=== PATIENT | male | born 1985 | race Caucasian/White ===

== ENCOUNTER 2024-10-23 02:45 | Emergency (ER) | payer OTHER, SELFPAY ==
--- NOTE | ~2024-10-23 | CT_ITS ---
EXAMINATION: CT ABDOMEN AND PELVIS WITHOUT CONTRAST CLINICAL INFORMATION: Hematuria. COMPARISON: None available. TECHNIQUE: Multidetector volumetric imaging was performed from the superior aspect of the liver through the pubic symphysis. Sagittal and coronal reformatted images were obtained on the technologist's workstation. This CT examination was performed using dose optimization techniques as appropriate, variously including the following: *Automated exposure control *Adjustment of mA and/or kV according to patient size (this includes techniques or standardized protocols for targeted exams where dose is matched to indication/reason for exam; i.e. extremities or head) *Use of iterative reconstruction technique DLP: 623 mGy centimeter. FINDINGS: Inadequate evaluation of the intra-abdominal organs and vascular structures due to lack of IV contrast. LUNG BASES: No acute airspace disease or gross pulmonary nodules. LIVER, GALLBLADDER, AND BILIARY TREE: Liver measures 15 cm. Contracted gallbladder. No pericholecystic fluid collection or gallbladder wall thickening. No intrahepatic or extrahepatic biliary ductal dilatation. PANCREAS: No peripancreatic fluid collection. No main pancreatic ductal dilatation. SPLEEN: 8 cm. ADRENAL GLANDS: No nodular lesions. KIDNEYS AND URETERS: Right kidney: Dilatation of the pelvicalyceal system and the right ureter with associated periureteral edema pattern. There is a 1.5 mm calculus in the distal right ureter near the vesicoureteral junction. Left kidney: No hydronephrosis. No nephrolithiasis. No dilatation of the left ureter. BLADDER: Questionable 1 mm hyperdensity floating in the lumen. GASTROINTESTINAL TRACT: Appendix is normal. No intestinal obstruction pattern. No pneumatosis intestinalis. Nonspecific gas and fluid-filled mildly prominent mid small bowel loops with questionable fecaloid material. No gross intestinal wall thickening. ABDOMINAL WALL: Small fat-containing umbilical hernia. LYMPH NODES: Nonspecific mildly prominent retroperitoneum and mesenteric. VASCULAR: No aneurysm, abdominal aorta. No gross calcified plaques. PELVIC VISCERA: Inadequate evaluation. The prostate gland is not enlarged. OSSEOUS STRUCTURES: Decreased intervertebral disc height at L5-S1. Spina bifida occulta S1, congenital. CT/CT abdomen pelvis wo IV con IMPRESSION: 1.5 mm obstructing calculus distal right ureter near the vesicoureteral junction resulting in mild to moderate right hydroureteronephrosis. Fleischner guidelines were followed. Electronically signed by: Anton Boone MD 10/23/2024 08:02 AM EDT
[2024-10-23 02:49] VITALS: BP 151/97; PULSE 71; RESP 18; TEMP 36.4; O2SAT 100; BMI 36.4
[2024-10-23] MEDS: Ondansetron ODT 4 MG TAB.RAPDIS TRANSLINGU (02:54)
[2024-10-23 04:11] LABS: Basophils Absolute Auto 0.1 X10*3/uL (0.0-0.2); Basophils Percent Auto 0.3 % (0-2); Eosinophils Absolute Auto 0.1 X10*3/uL (0.0-0.4); Eosinophils Percent Auto 0.7 % (0-4); Hematocrit 45.9 % (42.0-52.0); Hemoglobin 16.2 g/dl (14.0-18.0); Imm Gran Abs Auto 0.05 X10*3/uL (0.00-0.03); Imm Gran Pct Auto 0.3 % (0.0-0.4); Lymphocytes Absolute Auto 1.3 X10*3/uL (1.2-4.9); Lymphocytes Percent Auto 8.8 % (20-40); MANUAL DIFF FLAG NO; Mean Corpuscular HGB Conc 35.3 g/dl (31.0-36.0); Mean Corpuscular Hemoglobin 29.3 pg (27.0-33.0); Mean Corpuscular Volume 83.2 fL (80.0-98.0); Mean Platelet Volume 10.7 fL (9.4-12.4); Monocytes Absolute Auto 0.8 X10*3/uL (0.1-1.2); Monocytes Percent Auto 5.6 % (2-11); Neutrophils Absolute Auto 12.7 x10*3/uL (2.0-8.3); Neutrophils Percent Auto 84.3 % (45-73); Platelet Count 254 X10*3/uL (160-400); Red Blood Count 5.52 X10*6/uL (4.60-5.80); Red Cell Distribution Width 11.7 % (11.0-16.0); White Blood Count 15.1 X10*3/uL (4.8-10.8)
[2024-10-23 04:27] LABS: Alanine Aminotransferase 47 U/L (0-40); Albumin Level 4.9 g/dL (3.5-5.0); Alkaline Phosphatase 49 U/L (39-117); Anion Gap 14 (12-20); Aspartate Amino Transferase 32 U/L (5-37); Bilirubin Direct 0.2 mg/dL (0.0-0.5); Bilirubin Total 0.6 mg/dL (0.0-1.0); Blood Urea Nitrogen 15 mg/dL (9-16); Calcium 9.4 mg/dL (8.4-10.2); Carbon Dioxide 26 mmol/L (22-29); Chloride 103 mmol/L (96-108); Creatinine Clr Calc Pharmacy 110.2; Estimated Glomerular Filt Rate > 60; Glucose Random 118 mg/dL (60-115); Potassium 3.4 mmol/L (3.3-5.1); Sodium 140 mmol/L (135-145); Total Protein 7.6 g/dL (6.5-8.0)
[2024-10-23 06:13] LABS: Appearance Urine Clear; Color Urine Yellow; Glucose Urine UA Negative (Negative); Leukocyte Esterase Urine Negative (Negative); Nitrite Urine Negative (Negative); PH 7.5 (5.0-9.0); UMIC TRIGGER UACC YES; Urine Blood Moderate (2+) (Negative); Urine Ketones 40 mg/dL (Negative); Urine Protein Negative (Neg-Trace)
[2024-10-23 06:15] VITALS: BP 146/66; PULSE 71; RESP 20; TEMP 36.4; O2SAT 97
[2024-10-23 06:18] LABS: Bacteria Urine None Seen (None Seen); Hyaline Casts Urine 0-2 /LPF (0-2); RBC Urine >20 /HPF (0-2); Squamous Epithelial Cell Urine 0-2 /HPF (0-2); WBC Urine 0-5 /HPF (0-5)
--- NOTE | 2024-10-23 06:22 | ED.MALEGU ---
HPI - Male Genitourinary General Chief complaint: Urogenital-Male Stated complaint: right sided pain Time Seen by Provider: 10/23/24 06:22 History of Present Illness ED Provider: Roosevelt ARGUETA Narrative: The patient is a 38-year-old male who says that at around 01:00 this morning he woke up with right flank pain radiating was testicle. This started about an hour prior to arrival. He had had nausea during the day yesterday prior to the onset of the pain. Related Data Previous Rx's ?Medication ?Instructions ?Recorded ibuprofen 400 mg tablet 400 mg PO Q6H PRN pain #14 tabs 10/23/24 ondansetron 4 mg disintegrating 4 mg PO Q6H PRN nausea and 10/23/24 tablet vomiting #10 tabs oxycodone 5 mg tablet 5 mg PO Q6H PRN pain #10 tabs 10/23/24 Allergies Allergy/AdvReac Type Severity Reaction Status Date / Time No Known Allergies Allergy Verified 10/23/24 02:52 [No Known Allergies*] Review of Systems Review of Systems: Yes all other systems are reviewed and are negative [facility] Social History Social History Smoked in Last 30 Days: No Use of substances other than those prescribed or required for medical reasons: No Advance Directives: No Advance Directives Information Provided: Yes Do you have a plan to hurt others: No Plan Physical Exam Vital Signs: Vital Signs: Last Vital Signs Temp 97.7 F 10/23/24 08:00 Pulse 70 10/23/24 08:00 Resp 12 10/23/24 08:00 BP 103/60 10/23/24 08:00 Pulse Ox 97 10/23/24 08:00 O2 Del Method Room Air 10/23/24 08:00 BMI result Body Mass Index 36.4 Const: Other: The patient was awake and alert and seemed uncomfortable. HEENT: Other: Face is symmetrical. Mucous membranes moist. Eyes: General: appearance normal, both eyes and all related structures Neck: Neck: Yes normal visual inspection and Yes full ROM Resp: Effort & Inspection: normal respiratory effort Auscultation: clear to auscultation bilaterally Cardio: Rate: regular rate Rhythm: regular rhythm Heart sounds: S1 normal heart sound present and S2 normal heart sound present GI: Other: Abdomen is soft and nontender. Back/Spine/Pelvis: Other: There is right-sided CVA percussion tenderness Skin: General skin exam: no rashes or lesions noted Neuro: Other: The patient was awake and alert. He seemed somewhat preoccupied by his discomfort. No cranial nerve deficit. He moves his extremities symmetrically. Extrem: General: Yes no pedal edema and Yes no calf tenderness Medications Administered Discontinued Medications Generic Name Dose Route Start Last Admin Trade Name Freq PRN Reason Stop Dose Admin Droperidol 0.625 mg 10/23/24 06:27 10/23/24 06:41 Droperidol 5 Mg/2 Ml Vial IVPUSH 10/23/24 06:28 0.625 mg ONCE ONE Administration Sodium Chloride 1,000 mls @ 999 mls/hr 10/23/24 08:00 10/23/24 08:19 Ns IV 10/23/24 09:00 999 mls/hr .Q1H1M ANISA Administration Ketorolac Tromethamine 15 mg 10/23/24 06:27 10/23/24 06:41 Ketorolac Tromethamine 15 Mg/Ml Vial IVPUSH 10/23/24 06:28 15 mg ONCE ONE Administration Ondansetron HCl 4 mg 10/23/24 02:53 10/23/24 02:54 Ondansetron Odt 4 Mg Tab.Rapdis TRANSLINGU 10/23/24 02:54 4 mg ONCE ONE Administration Ondansetron HCl 4 mg 10/23/24 07:58 10/23/24 08:16 Ondansetron Hcl 4 Mg/2 Ml Vial IVPUSH 10/23/24 07:59 4 mg ONCE ONE Administration Medical Decision Making Medical Decision Making [facility] Narrative: The patient presents with right flank pain. There was microscopic hematuria. A CT scan of the abdomen and pelvis shows a 1.5 mm distally ureteral stone on the right side with associated hydronephrosis. The patient was treated with ketorolac IV with improvement in pain. He will be discharged with oxycodone, ibuprofen, and ondansetron. He was educated as to the nature of kidney stones. He should follow up with his PCP. He should return if worse. Lab Data 10/23/24 04:04 10/23/24 04:04 Labs: Lab Results 10/23/24 10/23/24 Range/Units 04:04 06:04 WBC 15.1 H (4.8-10.8) X10*3/uL RBC 5.52 (4.60-5.80) X10*6/uL Hgb 16.2 (14.0-18.0) g/dl Hct 45.9 (42.0-52.0) % MCV 83.2 (80.0-98.0) fL MCH 29.3 (27.0-33.0) pg MCHC 35.3 (31.0-36.0) g/dl RDW 11.7 (11.0-16.0) % Plt Count 254 (160-400) X10*3/uL MPV 10.7 (9.4-12.4) fL Immature Gran % (Auto) 0.3 (0.0-0.4) % Neut % (Auto) 84.3 H (45-73) % Lymph % (Auto) 8.8 L (20-40) % Tift % (Auto) 5.6 (2-11) % Eos % (Auto) 0.7 (0-4) % Baso % (Auto) 0.3 (0-2) % Lymph # (Auto) 1.3 (1.2-4.9) X10*3/uL Tift # (Auto) 0.8 (0.1-1.2) X10*3/uL Eos # (Auto) 0.1 (0.0-0.4) X10*3/uL Baso # (Auto) 0.1 (0.0-0.2) X10*3/uL Abs Immat Gran (auto) 0.05 H (0.00-0.03) X10*3/uL Absolute Neuts (auto) 12.7 H (2.0-8.3) x10*3/uL Absolute Nucleated RBC 0.000 (0.0-0.012) X10*3/uL Nucleated RBC % (auto) 0.0 (0.0-0.2) /100WBC Sodium 140 (135-145) mmol/L Potassium 3.4 (3.3-5.1) mmol/L Chloride 103 (96-108) mmol/L Carbon Dioxide 26 (22-29) mmol/L Anion Gap 14 (12-20) BUN 15 (9-16) mg/dL Creatinine 1.15 (0.5-1.4) mg/dL Estim Creat Clear Calc 110.2 Estimated GFR > 60 Random Glucose 118 H (60-115) mg/dL Calcium 9.4 (8.4-10.2) mg/dL Total Bilirubin 0.6 (0.0-1.0) mg/dL Direct Bilirubin 0.2 (0.0-0.5) mg/dL AST 32 (5-37) U/L ALT 47 H (0-40) U/L Alkaline Phosphatase 49 (39-117) U/L Total Protein 7.6 (6.5-8.0) g/dL Albumin 4.9 (3.5-5.0) g/dL Urine Color Yellow Urine Appearance Clear Urine pH 7.5 (5.0-9.0) Ur Specific Sutton 1.020 (1.005-1.025) Urine Protein Negative (Neg-Trace) mg/dL Urine Glucose (UA) Negative (Negative) mg/dL Urine Ketones 40 (Negative) mg/dL Urine Blood Moderate (2+) H (Negative) Urine Nitrite Negative (Negative) Ur Leukocyte Esterase Negative (Negative) Urine RBC >20 H (0-2) /HPF Urine WBC 0-5 (0-5) /HPF Ur Squamous Epith Cells 0-2 (0-2) /HPF Urine Bacteria None Seen (None Seen) Hyaline Casts 0-2 (0-2) /LPF Discharge Plan Discharge Clinical Impression: Calculus of distal right ureter, Ureteral colic Patient Disposition: Home, Self-Care Instructions: Renal Colic (ED), Ureteral Stones (ED) Additional Instructions: You have a 1.5 mm stone in your right distal ureter. This stone is small enough that it is very likely going to pass on its own without a procedure by a urologist. Therefore you should treat the pain until the stone passes into your bladder. To treat the pain you may use [id number] acetaminophen, 2 extra-strength tablets up to 3 times a day per day. Also you may use ibuprofen every 6 hours as needed. Additionally a prescription for oxycodone has been sent to your pharmacy. You may use the oxycodone as needed in addition to the acetaminophen and ibuprofen. For nausea you may use the ondansetron prescribed. Drink lot of fluids. Follow up with your regular doctor at the [facility]. Return to the emergency room if significantly worse. Prescriptions: New oxycodone 5 mg tablet 5 mg PO Q6H PRN (Reason: pain) Qty: 10 0RF Rx Instructions: Partial Fill upon patient request. ondansetron 4 mg tablet,disintegrating 4 mg PO Q6H PRN (Reason: nausea and vomiting) Qty: 10 0RF ibuprofen 400 mg tablet 400 mg PO Q6H PRN (Reason: pain) Qty: 14 0RF Referrals: [facility] [Provider Group] Print Language: Citizen Of [place]
[2024-10-23] MEDS: droPERidol 5 MG/2 ML VIAL 0.625 MG IVPUSH (06:41)
[2024-10-23] MEDS: Ketorolac Tromethamine 15 MG/ML VIAL IVPUSH (06:41)
--- NOTE | 2024-10-23 06:46 | PC.NURSE ---
medicated per Jul. pt awaiting CT SCan.
[2024-10-23 08:00] VITALS: BP 103/60; PULSE 70; RESP 12; TEMP 36.5; O2SAT 97
[2024-10-23] MEDS: ondansetron HCL 4 MG/2 ML VIAL IVPUSH (08:16)
[2024-10-23] MEDS: 0.9 % Sodium Chloride 1,000 ML 999 ML IV (08:19)
[2024-10-23] MEDS: Acetaminophen 325 MG TABLET 975 MG PO (09:13)
[2024-10-23] MEDS: Ibuprofen 400 MG TABLET PO (09:13)
[2024-10-23] MEDS: oxyCODONE HCl Immed Release 5 MG TABLET PO (09:13)
[2024-10-23 09:27] VITALS: BP 119/57; PULSE 72; RESP 18; TEMP 37.2; O2SAT 97
== END 2024-10-23 09:29 | disposition home or self-care (01) ==
PROVIDERS: Emergency Provider Emergency Medicine
DX: N13.2 Hydronephrosis with renal and ureteral calculous obstruction (principal); R10.9 Unspecified abdominal pain
CPT/HCPCS: 36415; 74176; 80048; 80076; 81001; 85025; 96361; 96374; 96375; 99284; 99285; J1790; J1885; J2405

== ENCOUNTER → 2024-10-23 06:27 | Outpatient (BNV) | payer OTHER, SELFPAY | PROVIDERS: Emergency Provider Emergency Medicine; Visit Provider Radiology Diagnostic Radiology | DX: N13.2 Hydronephrosis with renal and ureteral calculous obstruction (principal) | CPT/HCPCS: 74176 ==